=== PATIENT | female | born 1980 | race Caucasian/White ===

== ENCOUNTER → 2019-07-09 | Day surgery (SDC) | payer BC ==
[~2019-07-09] MED LIST: AZELASTINE137 MCG/0. INH; BENADRYL25 M1 PO; FENTANYL CITRATE/PF 100MCG/2 ML INJ ONE; GLUCAGON FOR INJ 1 MG VIAL ONE; HYOSCYAMINE 0.125 MG TAB ONE; LISINOPRIL-HCT1 EAC1 PO; MAXALT10 MG PO; MIDAZOLAM HCL 2 MG/2 ML VIAL ONE; ONDANSETRON HCL INJ 2MG/ML 2ML 2 MG/ML VIAL ONE; PROPOFOL IV EMULSION 10 MG/ML 50 ML VIAL ONE; WELLBUTRIN XL300 MG PO; ZOFRAN8 MG PO; ZYRTEC10 MG PO; [UNRECOGNIZED DRUG - CODE] PO
--- OUTSIDE RECORDS SUMMARY | 2019-07-09 07:21 | XMS REPORT ---
Author Author [facility] Address Unknown Phone Unavailable Care Team Providers Care Social Worker Health Services Name Role Phone Ca WOOTEN Unavailable Unavailable Problems This patient has no known problems. Allergies, Adverse Reactions, Alerts This patient has no known allergies or adverse reactions. Medications This patient has no known medications. Results Test Description Test Time Test Comments Text Results Atomic Results Result Comments BASIC METABOLIC PANEL 2018-03-23 20:13:00 SODIUM (BEAKER) (test lxkv=018) 140 meq/L 136-145 POTASSIUM (BEAKER) (test skng=951) 4.2 meq/L 3.5-5.1 CHLORIDE (BEAKER) (test nbvd=101) 107 meq/L 98-107 CO2 (BEAKER) (test lyyj=664) 21 meq/L 22-29 BLOOD UREA NITROGEN (BEAKER) (test ypli=210) 12 mg/dL 7-21 CREATININE (BEAKER) (test qfjs=363) 0.80 mg/dL 0.57-1.25 GLUCOSE RANDOM (BEAKER) (test bnvp=768) 86 mg/dL 70-105 CALCIUM (BEAKER) (test ioqx=459) 10.1 mg/dL 8.4-10.2 EGFR (BEAKER) (test mxqm=4253) mL/min/1.73 sq m INSUFFICIENT CLINICAL DATA TO CALCULATE ESTIMATED GFR. CT, BRAIN, WITHOUT [id number] 20:07:00Reason for exam:->dizzinessIs the patient ?->NoWhat is the patient's sedation requirement?->No Sedation FINAL REPORT CT head without contrast 03/23/2018 8:01 PM C LINICAL HISTORY: Dizziness TECHNIQUE: Axial noncontrast CT images through the he ad were obtained. This examination was performed according to our departmental d ose optimization program, which includes automated exposure control, adjustment of the mA and/or kV according to patient size, and/or use of iterated reconstruc tion technique. COMPARISON: None available FINDINGS: There is no hemorrhage, ext ra-axial collection, mass, hydrocephalus, or midline shift. There is no CT evide nce for cerebral infarction. The visualized paranasal sinuses and mastoid air c ells are well aerated. The skull is intact. IMPRESSION: No intracranial hemorrha ge or mass effect. If concern for acute pathology persists, further evaluati on with MRI is recommended. Signed: Jalen Vilchis Verified Date/Time: 03/23/2018 20:07:12 Reading Location: [facility] Radiology Reading Room B-TYPE NATRIURETIC FACTOR (BNP)2018-03-23 19:56:00* Test Item Value Reference Range Comments B-TYPE NATRIURETIC PEPTIDE (BEAKER) (test tqtm=497) 37 pg/mL 0-100 CREATINE KINASE (CK), TOTAL AND [id number] 19:56:00* Test Item Value Reference Range Comments CREATINE KINASE TOTAL (BEAKER) (test ltjx=602) 102 U/L 29-200 CREATINE KINASE-MB (BEAKER) (test umnb=756) 1.1 ng/mL 0.0-6.6 CREATINE KINASE-MB INDEX (BEAKER) (test edgd=202) 1.1 % CK-MB Reference Range:<6.7 Normal6.7-10.0 Borderline>10.0 Abnormal TROPONIN [id number] 19:56:00* Test Item Value Reference Range Comments TROPONIN I (BEAKER) (test fqbf=474) < ng/mL 0.00-0.03 Troponin I (TnI) levels must be interpreted in the context of the presenting sym ptoms and the clinical findings. Elevated TnI levels indicate myocardial damage, but are not specific for ischemic heart disease. Elevated TnI levels are seen in patients with other cardiac conditions (including myocarditis and congestive h eart failure), and slight TnI elevations occur in patients with other conditions , including sepsis, renal failure, acidosis, acute neurological disease, and per sistent tachyarrhythmia.[id number] 19:50:00* Test Item Value Reference Range Comments MAGNESIUM (BEAKER) (test rtmr=256) 2.5 mg/dL 1.6-2.6 CBC W/PLT COUNT & AUTO [id number] 19:30:00* Test Item Value Reference Range Comments WHITE BLOOD CELL COUNT (BEAKER) (test dzww=275) 12.6 K/ L 3.5-10.5 RED BLOOD CELL COUNT (BEAKER) (test zrpq=569) 4.63 M/ L 3.93-5.22 HEMOGLOBIN (BEAKER) (test zdns=763) 13.5 GM/DL 11.2-15.7 HEMATOCRIT (BEAKER) (test xbnv=971) 40.3 % 34.1-44.9 MEAN CORPUSCULAR VOLUME (BEAKER) (test famu=026) 87.0 fL 79.4-94.8 MEAN CORPUSCULAR HEMOGLOBIN (BEAKER) (test iemb=361) 29.2 pg 25.6-32.2 MEAN CORPUSCULAR HEMOGLOBIN CONC (BEAKER) (test jqsb=871) 33.5 GM/DL 32.2-35.5 RED CELL DISTRIBUTION WIDTH (BEAKER) (test qngq=667) 13.4 % 11.7-14.4 PLATELET COUNT (BEAKER) (test sdmw=797) 200 K/CU MM 150-450 MEAN PLATELET VOLUME (BEAKER) (test akas=145) 10.3 fL 9.4-12.3 NUCLEATED RED BLOOD CELLS (BEAKER) (test zvvl=089) 0 /100 WBC 0-0 NEUTROPHILS RELATIVE PERCENT (BEAKER) (test ndbq=124) 61 % LYMPHOCYTES RELATIVE PERCENT (BEAKER) (test hysm=800) 33 % MONOCYTES RELATIVE PERCENT (BEAKER) (test nugk=310) 4 % EOSINOPHILS RELATIVE PERCENT (BEAKER) (test ubco=779) 1 % BASOPHILS RELATIVE PERCENT (BEAKER) (test ehnc=811) 0 % NEUTROPHILS ABSOLUTE COUNT (BEAKER) (test znbg=951) 7.71 K/ L 1.56-6.13 LYMPHOCYTES ABSOLUTE COUNT (BEAKER) (test gfqz=260) 4.14 K/ L 1.18-3.74 MONOCYTES ABSOLUTE COUNT (BEAKER) (test cbww=365) 0.46 K/ L 0.24-0.36 EOSINOPHILS ABSOLUTE COUNT (BEAKER) (test awos=088) 0.16 K/ L 0.04-0.36 BASOPHILS ABSOLUTE COUNT (BEAKER) (test fyqh=137) 0.04 K/ L 0.01-0.08 IMMATURE GRANULOCYTES-RELATIVE PERCENT (BEAKER) (test egez=3615) 0 % 0-1 RAD, CHEST, 2 [id number] 15:22:00Reason for exam:->CHEST PAINFINAL REPORT Chest two views INDICATION: Chest pain COMPARISON: None available IMPRESSION: There is no focal consolidation, vascular congestion, pleural effusion, or pneumothorax. The cardiomediastinal silhouette is u nremarkable. There is sigmoid thoracic scoliosis with mild degenerative spine ch anges. Signed: Khurram Sifuentes MDReport Verified Date/Time: 03/23/2018 15: 22:39 Reading Location: [facility] [id number] Consult Reading Room Electronically leonor d by: KHURRAM SIFUENTES M.D. on 03/23/2018 03:22 PM
--- OUTSIDE RECORDS SUMMARY | 2019-07-09 07:21 | XMS REPORT | Continuity of Care Document ---
Author Author [facility] Address Unknown Phone Unavailable Care Team Providers Care Retail Sales Lead Name Role Phone [employer] Unavailable Unavailable Problems No Data Provided for This Section Medications No Data Provided for This Section Allergies, Adverse Reactions, Alerts No Known Medication Allergies Immunizations No Data Provided for This Section Results No Data Provided for This Section Pathology Reports No Data Provided for This Section Diagnostic Reports No Data Provided for This Section Consultation Notes No Data Provided for This Section Discharge Summaries No Data Provided for This Section History and Physicals No Data Provided for This Section Vital Signs No Data Provided for This Section Encounters Location Location Details Encounter Type Encounter Number Reason For Visit Attending Provider ADM Date DC Date Status Source Outpatient [id number] NAPOLEON JIMENEZ 11/11/2016 Active [facility] [id number] NAPOLEON JIMENEZ 12/16/2016 Active [facility] Procedures No Data Provided for This Section Assessment and Plan No Data Provided for This Section Plan of Care No Data Provided for This Section Social History No Data Provided for This Section Family History No Data Provided for This Section Advance Directives No Data Provided for This Section Functional Status No Data Provided for This Section
--- OUTSIDE RECORDS SUMMARY | 2019-07-09 07:21 | XMS REPORT | Clinical Summary ---
Author Author [facility] Address Unknown Phone Unavailable Care Team Providers Care Drill Grinder Name Role Phone Addis Dunaway MD PCP Allergies Comments Active Allergy Reactions Severity Noted Date Meperidine 03/23/2018 Penicillins 03/23/2018 Medications End Date Status Medication Sig Dispensed Refills Start Date 03/23/2019 cloNIDine HCl (CATAPRES) Take 1 tablet 20 tablet 0 0.1 MG tablet (0.1 mg 8 total) by mouth 2 (two) times daily as needed. Active Problems Not on file Social History Date Tobacco Use Types Packs/Day Years Used Never Assessed Sex Assigned at Date Recorded Not on file Industry Job Start Date Occupation Not on file Not on file Not on file Travel End Travel History Travel Start No recent travel history available. Last Filed Vital Signs Not on file Plan of Treatment Not on file Results Not on fileafter 07/08/2018 Insurance Payer Benefit Subscriber ID Type Phone Address Plan / Group BLUE CROSS/BLUE [employer] BCBS ADV xxxxxxxxxxxx [phone] [address] [place] [address] EXCHANGE
[2019-07-09 11:45] VITALS: BP 124/89
--- NOTE | 2019-07-09 17:33 | Operative Report ---
DATE OF PROCEDURE: 07/09/2019 SURGEON: Salty Peterson MD PROCEDURE: Esophagogastroduodenoscopy with biopsies and colonoscopy with biopsies. REFERRING PHYSICIAN: Dr. Paulina Clifford INDICATIONS FOR EGD: Dyspepsia, history of dark stools. INDICATIONS FOR COLONOSCOPY: Lower abdominal pain, family history of colon cancer and bloody stool. MEDICATIONS: The patient was done under MAC, please see anesthesiologist's note. PROCEDURE IN DETAIL: With the patient in left lateral decubitus position, a flexible fiberoptic Olympus gastroscope was introduced into the esophagus under direct visualization without any difficulty. There was some patchy intense erythema noted in distal esophagus. A minute tongue of velvety red mucosa was noted to extend proximally from the GE junction and biopsies were obtained to rule out sprue. The scope was then advanced with ease into the stomach. Mucosa overlying the antrum and the body revealed some patchy intense erythema and moderate edema and biopsies were obtained and sent to stain for H pylori. The pylorus was of normal contour and shape, it was intubated with ease and the scope was advanced all the way to the second portion of the duodenum. Biopsies were obtained from the second portion as well as the duodenal bulb to rule out sprue. The scope was then withdrawn back into the stomach and retroflexed. Mucosa overlying the fundus and cardia appeared to be within normal limits. The scope was then straightened out, it was subsequently withdrawn. The patient tolerated the procedure well. IMPRESSION: 1. Distal esophagitis. 2. Rule out [place] esophagus. 3. Gastritis, biopsied. Biopsies sent to stain for Helicobacter pylori. 4. Rule out sprue. PLAN: Follow up histology. Initiate Protonix 40 mg one p.o. q.a.m. a.c. DESCRIPTION OF PROCEDURE: The patient was then turned around after adequate lubrication of the anal canal, a flexible fiberoptic Olympus colonoscope was inserted into the rectum with ease and advanced all the way to the cecum. It was then withdrawn slowly. Mucosa overlying the cecum, ascending colon, and transverse colon as well as the descending colon grossly appeared to be within normal limits. There was some patchy erythema and low-grade to moderate edema noted in the sigmoid and rectum and biopsies were obtained. The scope was then retroflexed into the distal rectum and small internal hemorrhoids were noted, none of which was actively bleeding. The scope was then straightened out, it was subsequently withdrawn. The patient tolerated the procedure well. IMPRESSION: 1. Proctosigmoiditis, mild. Biopsies obtained. 2. Internal hemorrhoids, none actively bleeding. PLAN: Follow up histology. Initiate high-fiber, low-fat diet. Initiate high-fiber supplement. Start Visbiome one p.o. b.i.d. Salty Peterson MD [facility]/MODL /[id number] cc: Paulina Clifford MD
== END | disposition home or self-care (01) ==
LOC: OR 07:15
PROVIDERS: ATTEND Internal Medicine Gastroenterology
DX: K92.1 Melena (principal); R14.0 Abdominal distension (gaseous); K59.00 Constipation, unspecified; Z80.0 Family history of malignant neoplasm of digestive organs; R11.0 Nausea; F41.9 Anxiety disorder, unspecified; I10 Essential (primary) hypertension; K58.9 Irritable bowel syndrome, unspecified; Z88.8 Allergy status to other drugs, medicaments and biological substances; Z88.0 Allergy status to penicillin; Z91.013 Allergy to seafood; R10.30 Lower abdominal pain, unspecified; Z68.31 Body mass index [BMI] 31.0-31.9, adult; Z86.010 Personal history of colon polyps; K20.9 Esophagitis, unspecified; K63.89 Other specified diseases of intestine; K64.8 Other hemorrhoids; Z01.810 Encounter for preprocedural cardiovascular examination
CPT/HCPCS: 43239; 45380; 81025; 93005; J1610; J2250; J2405; J2704; J3010; 45378

== ENCOUNTER → 2023-03-27 | Outpatient (CLI) | payer SELFPAY ==
[~2023-03-27] MED LIST changes: -FENTANYL CITRATE/PF 100MCG/2 ML INJ ONE; -GLUCAGON FOR INJ 1 MG VIAL ONE; -HYOSCYAMINE 0.125 MG TAB ONE; -MIDAZOLAM HCL 2 MG/2 ML VIAL ONE; -ONDANSETRON HCL INJ 2MG/ML 2ML 2 MG/ML VIAL ONE; -PROPOFOL IV EMULSION 10 MG/ML 50 ML VIAL ONE
== END ==
LOC: RAD 14:33
PROVIDERS: ATTEND Physician Assistant Medical
DX: R60.9 Edema, unspecified (principal)
CPT/HCPCS: 93971